=== PATIENT | male | born 1980 | race Caucasian/White ===

== ENCOUNTER 2018-08-31 12:49 | Emergency (ER) | payer OTHER ==
[~2018-08-31] VITALS: Ht 180.3 cm; Wt 86.2 kg
[2018-08-31] MEDS: ONDANSETRON PF 4 MG/2 ML VIAL. IV ONE (13:10)
[2018-08-31] MEDS: KETOROLAC 30 MG/ML VIAL. IV ONE (13:11)
[2018-08-31] MEDS: MORPHINE SULFATE 10 MG/ML VIAL. IV ONE ×3 (13:13→14:47)
[2018-08-31] MEDS: IV NORMAL SALINE 1000ML BAG 1,000 ML IV ONE (13:13)
[2018-08-31 13:14] LABS: BASO # 0.1 x10^3/uL (0.0-0.2); BASO % 1 % (0-3); EOS % 1 % (0-3); HEMOGLOBIN 15.1 g/dL (13.0-17.5); LYMPH # 2.4 x10^3/uL (1.0-4.8); LYMPH % 41 % (24-48); MEAN CORPUSCULAR HEMOGLOBIN 30 pg (25-35); MEAN CORPUSCULAR HGB CONC 35 g/dL (31-37); MEAN CORPUSCULAR VOLUME 86 fL (79-100); MONO # 0.6 x10^3/uL (0.0-1.1); MONO % 10 % (0-9); NEUT # 2.9 x10^3uL (1.8-7.7); NEUT % 48 % (31-73); PLATELET COUNT 300 x10^3/uL (140-400); RED BLOOD COUNT 4.99 x10^6/uL (4.30-5.70)
[2018-08-31 13:26] LABS: CALCIUM 8.6 mg/dL (8.5-10.1); CREATININE 1.1 mg/dL (0.7-1.3); GFR 75.7; POTASSIUM 3.2 mmol/L (3.5-5.1)
[2018-08-31 13:29] LABS: BILIRUBIN,URINE NEGATIVE (NEG); CLARITY,URINE CLEAR; COLOR,URINE YELLOW; NITRITE,URINE NEGATIVE (NEG); PROTEIN,URINE NEGATIVE (NEG-TRACE); UROBILINOGEN,URINE 0.2 mg/dL (0.2 mg/dL)
[2018-08-31 13:32] LABS: ALBUMIN 4.1 g/dL (3.4-5.0); ALBUMIN/GLOBULIN RATIO 1.1 (1.0-1.7); TOTAL BILIRUBIN 1.2 mg/dL (0.2-1.0); TOTAL PROTEIN 7.7 g/dL (6.4-8.2)
[2018-08-31] MEDS: TAMSULOSIN 0.4 MG CAP.ER.24H. PO ONE (13:33)
[2018-08-31 13:35] LABS: BARBITURATES NEG (NEG); BENZODIAZEPINES NEG (NEG); CANNABINOIDS NEG (NEG); COCAINE NEG (NEG); METHADONE NEG (NEG); OPIATES POS (NEG); PHENCYCLIDINE NEG (NEG)
[2018-08-31 13:36] LABS: AMPHETAMINE/METHAMPHETAMINE NEG (NEG)
[2018-08-31 13:46] LABS: BACTERIA,URINE 0 /HPF (0-FEW); SQUAMOUS EPITHELIAL CELL,UR OCC /LPF; WBC,URINE 0 /HPF (0-4)
[2018-08-31] MEDS: POTASSIUM CHLORIDE 20 MEQ TABLET.ER. PO ONE (13:53)
--- NOTE | 2018-08-31 14:08 | RAD ---
CT of the abdomen and pelvis without contrast, 08/31/2018: HISTORY: Left flank pain and groin pain Noncontrast scans were obtained utilizing the renal stone protocol. There is a tiny 2 mm intrarenal calculus on the right. The right renal collecting system and ureter are unremarkable. No left intrarenal calculi are seen. There is mild dilatation of the left renal collecting system and left ureter due to a 4 mm calculus lodged at the left ureterovesical junction. The bladder is collapsed and poorly defined. The unopacified liver is unremarkable. No gallbladder abnormality is seen. The pancreas is unremarkable. The spleen is of normal size. No adrenal abnormality is detected. No abdominal or pelvic adenopathy is seen. The bowel loops are not dilated. A portion of the appendix is visualized and it is unremarkable. No free fluid or free air is evident in the abdomen or pelvis. A small posterior disc protrusion is noted centered just the right of midline at L4-5. IMPRESSION: 1. Small nonobstructing right intrarenal calculus. 2. 4 mm obstructing calculus at the left ureterovesical junction. PQRS Compliance Statement: One or more of the following individualized dose reduction techniques were utilized for this examination: 1. Automated exposure control 2. Adjustment of the mA and/or kV according to patient size 3. Use of iterative reconstruction technique Electronically signed by: Julian Shi MD (08/31/2018 2:04 PM) [facility]
[2018-08-31 14:42] VITALS: BP 116/66
[2018-08-31] MEDS ORDERED: TAMS0.4C97 PO (14:47)
[2018-08-31] MEDS ORDERED: HYDR-3164 PO (14:47)
[2018-08-31] MEDS ORDERED: ONDA4TAB7 PO (14:47)
--- NOTE | 2018-08-31 14:48 | PHYS DOC ---
Past Medical History Past Medical History: Hypertension, IBS Past Surgical History: Other Additional Past Surgical Histo: Left ACL Alcohol Use: Occasionally Drug Use: None Adult General Chief Complaint Chief Complaint: FLANK PAIN HPI HPI Patient is a 37 year old male who presents today complaining of 10 out of 10 sharp constant left flank pain with nausea and vomiting that began a couple minutes prior to coming to the ED. Patient denies any personal history of kidney stones. Denies any hematuria. Denies any urgency frequency/ dysuria. Review of Systems Review of Systems Constitutional: Denies fever or chills [] Eyes: Denies change in visual acuity, redness, or eye pain [] HENT: Denies nasal congestion or sore throat [] Respiratory: Denies cough or shortness of breath [] Cardiovascular: No additional information not addressed in HPI [] GI: Reports nausea and vomiting. Denies abdominal pain, bloody stools or diarrhea [] : Reports left flank pain. Denies dysuria or hematuria [] Musculoskeletal: Denies back pain or joint pain [] Integument: Denies rash or skin lesions [] Neurologic: Denies headache, focal weakness or sensory changes [] All other systems were reviewed and found to be within normal limits, except as documented in this note. Current Medications Current Medications Current Medications Medications (Trade) Dose Ordered Sig/Zahira Start Time Stop Time Status Last Admin Dose Admin Ketorolac Tromethamine (Toradol 30mg Vial) 30 mg 1X ONCE 08/31/18 13:00 08/31/18 13:03 DC 08/31/18 13:11 30 MG Morphine Sulfate (Morphine Sulfate) 5 mg 1X ONCE 08/31/18 14:45 08/31/18 14:46 Ondansetron HCl (Zofran) 4 mg 1X ONCE 08/31/18 13:00 08/31/18 13:03 DC 08/31/18 13:10 4 MG Potassium Chloride (Klor-Con) 40 meq 1X ONCE 08/31/18 14:00 08/31/18 14:01 DC 08/31/18 13:53 40 MEQ Sodium Chloride 1,000 ml @ 1,000 mls/hr 1X ONCE 08/31/18 13:00 08/31/18 13:59 DC 08/31/18 13:13 1,000 MLS/HR Tamsulosin HCl (Flomax) 0.4 mg 1X ONCE 08/31/18 13:00 08/31/18 13:03 DC 08/31/18 13:33 0.4 MG Allergies Allergies Allergies Coded Allergies Type Severity Reaction Last Updated Verified No Known Drug Allergies 08/31/18 No Physical Exam Physical Exam Constitutional: Well developed, well nourished, no acute distress, non-toxic appearance. [] HENT: Normocephalic, atraumatic, bilateral external ears normal, oropharynx moist, no oral exudates, nose normal. [] Eyes: PERRLA, EOMI, conjunctiva normal, no discharge. [] Neck: Normal range of motion, no tenderness, supple, no stridor. [] Cardiovascular:Heart rate regular rhythm, no murmur [] Lungs & Thorax: Bilateral breath sounds clear to auscultation [] Abdomen: Bowel sounds normal, soft, no tenderness, no masses, no pulsatile masses. [] Skin: Warm, dry, no erythema, no rash. [] Back: No tenderness, mild left CVA tenderness. [] Extremities: No tenderness, no cyanosis, no clubbing, ROM intact, no edema. [] Neurologic: Alert and oriented X 3, normal motor function, normal sensory function, no focal deficits noted. [] Psychologic: Affect normal, judgement normal, mood normal. [] Current Patient Data Vital Signs Vital Signs Date Time Temp Pulse Resp B/P (MAP) Pulse Ox O2 Delivery O2 Flow Rate FiO2 08/31/18 13:54 16 99 Room Air 08/31/18 12:55 97.8 68 146/75 (98) 97.8 Lab Values Laboratory Tests Test 08/31/18 12:56 08/31/18 13:20 White Blood Count 6.0 x10^3/uL (4.0-11.0) Red Blood Count 4.99 x10^6/uL (4.30-5.70) Hemoglobin 15.1 g/dL (13.0-17.5) Hematocrit 43.0 % (39.0-53.0) Mean Corpuscular Volume 86 fL (79-100) Mean Corpuscular Hemoglobin 30 pg (25-35) Mean Corpuscular Hemoglobin Concent 35 g/dL (31-37) Red Cell Distribution Width 13.0 % (11.5-14.5) Platelet Count 300 x10^3/uL (140-400) Neutrophils (%) (Auto) 48 % (31-73) Lymphocytes (%) (Auto) 41 % (24-48) Monocytes (%) (Auto) 10 % (0-9) H Eosinophils (%) (Auto) 1 % (0-3) Basophils (%) (Auto) 1 % (0-3) Neutrophils # (Auto) 2.9 x10^3uL (1.8-7.7) Lymphocytes # (Auto) 2.4 x10^3/uL (1.0-4.8) Monocytes # (Auto) 0.6 x10^3/uL (0.0-1.1) Eosinophils # (Auto) 0.0 x10^3/uL (0.0-0.7) Basophils # (Auto) 0.1 x10^3/uL (0.0-0.2) Sodium Level 139 mmol/L (136-145) Potassium Level 3.2 mmol/L (3.5-5.1) L Chloride Level 101 mmol/L (98-107) Carbon Dioxide Level 25 mmol/L (21-32) Anion Gap 13 (6-14) Blood Urea Nitrogen 18 mg/dL (8-26) Creatinine 1.1 mg/dL (0.7-1.3) Estimated GFR (Cockcroft-Gault) 75.7 BUN/Creatinine Ratio 16 (6-20) Glucose Level 143 mg/dL (70-99) H Calcium Level 8.6 mg/dL (8.5-10.1) Total Bilirubin 1.2 mg/dL (0.2-1.0) H Aspartate Amino Transferase (AST) 15 U/L (15-37) Alanine Aminotransferase (ALT) 34 U/L (16-63) Alkaline Phosphatase 59 U/L (46-116) Total Protein 7.7 g/dL (6.4-8.2) Albumin 4.1 g/dL (3.4-5.0) Albumin/Globulin Ratio 1.1 (1.0-1.7) Lipase 111 U/L (73-393) Ethyl Alcohol Level < 10 mg/dL (0-10) Urine Collection Type Unknown Urine Color Yellow Urine Clarity Clear Urine pH 5.0 Urine Specific [place] 1.025 Urine Protein Negative mg/dL (NEG-TRACE) Urine Glucose (UA) Negative mg/dL (NEG) Urine Ketones (Stick) Negative mg/dL (NEG) Urine Blood Large (NEG) Urine Nitrite Negative (NEG) Urine Bilirubin Negative (NEG) Urine Urobilinogen Dipstick 0.2 mg/dL (0.2 mg/dL) Urine Leukocyte Esterase Negative (NEG) Urine RBC 3-5 /HPF (0-2) Urine WBC 0 /HPF (0-4) Urine Squamous Epithelial Cells Occ /LPF Urine Bacteria 0 /HPF (0-FEW) Urine Mucus Mod /LPF Urine Opiates Screen Pos (NEG) Urine Methadone Screen Neg (NEG) Urine Barbiturates Neg (NEG) Urine Phencyclidine Screen Neg (NEG) Urine Amphetamine/Methamphetamine Neg (NEG) Urine Benzodiazepines Screen Neg (NEG) Urine Cocaine Screen Neg (NEG) Urine Cannabinoids Screen Neg (NEG) Urine Ethyl Alcohol Neg (NEG) Laboratory Tests 08/31/18 12:56 Laboratory Tests 08/31/18 12:56 EKG EKG [] Radiology/Procedures Radiology/Procedures [] Course & Med Decision Making Course & Med Decision Making Pertinent Labs and Imaging studies reviewed. (See chart for details) This is a 37-year-old male patient presented to the ED today complaining of left flank pain that began a couple minutes prior to coming to the ED. CBC with a normal WBC, CMP with normal creatinine and BUN. Urine analysis is noted for large amount of blood, no infection. CT of the abdomen and pelvic was noted for 4 mm obstructing calculus in the left UVJ. Small nonobstructing right intrarenal calculus also noted. Patient was given Flomax, Toradol, several doses of morphine and 1 L of IV fluid with good relief of his pain. He'll be discharged with instructions to follow-up with the urologist. Discharged with flomax, hydrocodone, naproxen and Zofran. Instructed to return to the ED at any point symptoms worsen. Dragon Disclaimer Dragon Disclaimer This electronic medical record was generated, in whole or in part, using a voice recognition dictation system. Departure Departure Impression: Primary Impression: Renal calculi Disposition: 01 HOME, SELF-CARE Condition: STABLE Referrals: UNKNOWN PCP NAME (PCP) REGULO TRONCOSO MD Call the office and set up a follow-up appointment as soon as you can Patient Instructions: Kidney Stones Additional Instructions: You were evaluated in the emergency room and noted to have kidney stones, please take the prescribed medications as ordered. Contact the provided urologist and set up a follow-up appointment as an outpatient as soon as possible. Come back to the ED at any point symptoms worsen. Scripts Tamsulosin Hcl (FLOMAX) 0.4 Mg Cap.er.24h 1 CAP PO DAILY, #7 CAP 0 Refills Prov: YAHAIRA SORTO APRN 08/31/18 Ondansetron Hcl (ZOFRAN) 4 Mg Tablet 1 TAB PO Q6HRS, #20 TAB Prov: YAHAIRA SORTO APRN 08/31/18 Hydrocodone/Apap 5-325 (NORCO 5-325 TABLET) 1 Each Tablet 1-2 TAB PO Q4-6HRS PRN for PAIN, #25 TAB Prov: YAHAIRA SORTO APRN 08/31/18 YAHAIRA SOTRO APRN Aug 31, 2018 14:48
== END 2018-08-31 14:55 | disposition home or self-care (01) ==
LOC: ER 12:49
DX: N20.2 Calculus of kidney with calculus of ureter (principal); R11.2 Nausea with vomiting, unspecified; I10 Essential (primary) hypertension; K58.9 Irritable bowel syndrome, unspecified
CPT/HCPCS: 36415; 74176; 80053; 80307; 81001; 83690; 85025; 96361; 96374; 96375; 96376; 99284; G0480; J1885; J2270; J2405; J7030